=== PATIENT | female | born 1970 | race Caucasian/White ===

== ENCOUNTER 2018-10-18 08:00 | Outpatient (CLI) | payer MEDICARE | END 2018-10-18 09:00 | disposition home or self-care (01) | LOC: D.MAMMO 08:00 | DX: N64.52 Nipple discharge (principal) ==

== ENCOUNTER 2021-03-11 11:45 | Outpatient (CLI) | payer MEDICARE | END 2021-03-11 23:59 | disposition home or self-care (01) | LOC: D.MAMMO 11:45 | PROVIDERS: ATTEND Family Medicine | DX: Z12.31 Encounter for screening mammogram for malignant neoplasm of breast (principal) ==